=== PATIENT | male | born 1955 | race Caucasian/White ===

== ENCOUNTER 2017-02-04 22:16 | Emergency (ER) | payer MEDICARE | END 2017-02-05 01:17 | disposition home or self-care (01) | LOC: D.ER 22:16 | DX: S80.02XA Contusion of left knee, initial encounter (principal); X58.XXXA Exposure to other specified factors, initial encounter; Y93.89 Activity, other specified; Y92.89 Other specified places as the place of occurrence of the external cause; S70.02XA Contusion of left hip, initial encounter ==

== ENCOUNTER → 2019-01-23 07:36 | Outpatient (CLI) | payer OTHER | END | disposition home or self-care (01) | LOC: D.US 07:36 | PROVIDERS: ATTEND Internal Medicine Gastroenterology | DX: K25.9 Gastric ulcer, unspecified as acute or chronic, without hemorrhage or perforation (principal); K31.9 Disease of stomach and duodenum, unspecified ==